=== PATIENT | male | born 1995 | race Caucasian/White ===

== ENCOUNTER 2022-03-14 14:14 | Emergency (ER) | payer BC, SELFPAY ==
[2022-03-14 14:16] VITALS: BP 142/103; PULSE 108; RESP 14; TEMP 36.4; O2SAT 98; BMI 30.4
--- NOTE | 2022-03-14 15:14 | EKG12_ITS ---
Test Reason : SOB Blood Pressure : / mmHG Vent. Rate : 094 BPM Atrial Rate : 094 BPM P-R Int : 136 ms QRS Dur : 078 ms QT Int : 340 ms P-R-T Axes : 025 001 002 degrees QTc Int : 425 ms Normal sinus rhythm with sinus arrhythmia Minimal voltage criteria for LVH, may be normal variant ( R in aVL ) Nonspecific T wave abnormality Abnormal ECG Confirmed by HANK BROOKS, TODD ([id number]), editor managing newspaper ROGER ZAMORA ([id number]) on 03/16/2022 11:51:35 AM Referred By: GISELLE Confirmed By:NAYE MCKINNEY MD
--- NOTE | 2022-03-14 15:14 | EX.ED.DYSGE1 ---
HPI History of Present Illness Chief Complaint: Shortness of Breath Detail of Chief Complaint: Palpitations Informant: patient Onset/Context/Timing Onset: Days Context: Gradual Onset Timing: Intermittent Current Severity: Mild Maximum Severity: Mild Narrative Narrative: 26-year-old male no seen past medical history. States for the last week has had palpitations and dizziness. No prior history. States it feels like his heart is fluttering. Says it makes him anxious. He denies any new stressors. He denies any vomiting or diarrhea. No melena. No fever. No drastic weight changes no drastic hair loss. No hot or cold intolerances. He is never had any cardiac history. He denies any pain. Saw his primary care physician was recently started on an antianxiety medication. Prior similar symptoms: No Recent Illness/Hospitalization: No PFSH PFSH Medical History no medical history no medical history Home Medications lorazepam 1 mg tablet (Ativan) 1 mg PO DAILY PRN anxiety 7 days #7 tabs 03/14/22 [Rx Last Taken Unknown] Allergy/AdvReac Type Severity Reaction Status Date / Time No Known Allergies Allergy Verified 03/14/22 14:16 Surgical History no surgical history Social History Smoking Status: Never smoker ROS ROS ED ROS Narrative Palpitations. Anxiety. Review of Systems ROS Unobtainable: Denies due to encephalopathy Constitutional Constitutional ED: Denies chills or fever(s) Eyes Eyes: Denies blurry vision Cardiovascular Cardiovascular: Denies chest pain Respiratory/Chest Respiratory/Chest: Denies cough Gastrointestinal Gastrointestinal: Denies abdominal pain Genitourinary Genitourinary ED: Denies dysuria or hematuria Musculoskeletal Musculoskeletal: Denies arthralgias Integumentary Denies abscess Neurologic Neurologic: Denies headache(s) Psychiatric Psychiatric: Reports anxiety Endocrine Endocrinology: Denies cold intolerance Hematologic/Lymphatic Hematologic/Lymphatic: Reports none; Denies anemia Allergic/Immunologic Allergic/Immunologic ED: Denies mouth swelling or tongue swelling EXAM Physical Exam Narrative Exam Narrative: White male no acute distress vital signs stable afebrile pulse ox 90% on room air no hypoxia. H EENT exam unremarkable. Neck nontender no thyromegaly. No lymphadenopathy. Lungs clear to auscultation bilaterally. Heart regular rhythm rate about 105 no murmur. Chest wall nontender. Abdomen soft nontender. Moving all 4 extremities. Equal symmetrical radial pulses. Calves are nontender without edema or cords. Back exam normal neurologic exam normal. Const Vital Signs: 03/14/22 14:16 03/14/22 15:12 03/14/22 15:22 Temperature 97.6 F L Temperature Source Temporal Pulse Rate 108 H Respiratory Rate 14 Respiratory Effort Normal Respiratory Depth Normal Respiratory Pattern Normal Blood Pressure 142/103 H Blood Pressure Mean 116 Pulse Ox 98 98 Oxygen Delivery Method Room Air Room Air Room Air Positive well nourished, well developed and obese; Negative for cachectic, contractures or unkempt General Appearance ED: well developed and NAD; Negative for unkempt, cachectic, contractures, cyanotic or diaphoretic Nutritional Appearance: obese; Negative for cachectic HEENT Reports moist mucous membranes; Denies dry mucous membranes Negative for trauma Mouth ED: No dry mucous membranes Mouth: No dry mucous membranes Eyes PERRL and EOMs intact bilaterally General Eye ED: Negative for pale conjunctiva or scleral icterus Neck no lymphadenopathy, supple and no JVD General: Negative for tenderness Chest Wall inspection of chest normal and palpation of chest normal Chest: Negative for other Resp normal respiratory effort and clear to auscultation bilaterally Effort and Inspection: Negative for retractions Auscultation: Negative for rales, rhonchi or wheezes Cardio S1 normal heart sound, S2 normal heart sound and no murmurs; Negative for regular rate Palpation: Negative for palpable S3 Rate: tachycardic; Negative for bradycardia GI normal to inspection, nondistended, normoactive bowel sounds, non-tender, non-distended and no masses Inspection: Negative for abdominal distention Auscultation: normoactive bowel sounds Palpation: soft; Negative for tender Back/Spine no CVA tenderness General Back: Negative for CVA tenderness Cervical Spine: Negative for cervical spine tenderness Thoracic Spine / Upper Back: Negative for thoracic spinal tenderness Lumbar Spine / Lower Back: Negative for lumbar spinal tenderness Extremity normal to inspection General Extremety ED: Negative for edema or tenderness General Extremity: Negative for edema Neuro oriented x3, CN's II-XII intact bilaterally and no sensory deficits noted Sensorium / Orientation: alert; Negative for orientation impaired, lethargic or stuporous Motor Exam: strength 5/5 throughout; Negative for general weakness Psych mental status grossly normal Appearance: Negative for unkempt Attitude: No agitated Mood & Affect: anxious; Negative for depressed Skin no rashes or lesions noted, no wounds and skin turgor normal General Skin Exam: elasticity normal Lesions: No lesion noted Rashes: No rashes noted Trauma: Negative for abrasion Wounds: Negative for wounds noted MDM MDM MDM Narrative Medical decision making narrative: 26-year-old male with palpitations and subjective symptoms but normal exam. Undergo a cardiac work-up with a thyroid test. No signs of AR or chest pain at all Micha and his age he needs a troponin. Exam is benign. This may be secondary to anxiety. Repeat exam at 4:32 PM patient doing well. 2 family members in the room who think this is anxiety I explained to him that very well may be. He will be given a short prescription of Ativan 1 mg as needed #5 no refill. Follow-up with his doctor. Also look into other anxiety reducing activities such as walking, exercise, yoga or meditation. Lab Data Attestation: I reviewed the patient's lab results. Lab results narrative: CBC normal. White count 9. H&H 15 and 43. Platelets 250. Electrolytes gap is 7 normal BUN and creatinine at 13 and 1. Glucose 119. Troponin normal at 4 and TSH normal at 0.71. Chest x-ray normal. Labs: Laboratory Results - last 24 hr 03/14/22 03/14/22 15:23 15:23 WBC 9.5 RBC 5.13 Hgb 15.4 Hct 43.9 MCV 85.6 MCH 30.0 MCHC 35.1 RDW Std Deviation 36.4 RDW Coeff of Norma 11.6 Plt Count 250 MPV 10.9 Immature Gran % (Auto) 0.500 Neut % (Auto) 75.7 H Lymph % (Auto) 17.8 L [place] % (Auto) 5.6 Eos % (Auto) 0.1 Baso % (Auto) 0.3 Absolute Neuts (auto) 7.2 Absolute Lymphs (auto) 1.69 Nucleated RBC % 0 Sodium 138 Potassium 3.9 Chloride 107 Carbon Dioxide 24.0 Anion Gap 7 BUN 13 Creatinine 1.02 Estim Creat Clear Calc 114.84 Est GFR (MDRD) Af Amer 111 Est GFR (MDRD) Non-Af 92 BUN/Creatinine Ratio 12.7 Glucose 119 H Calcium 9.6 Troponin I High Sens 4 TSH 0.71 Radiography Chest X-Ray - ED: 1 View, Read by ED Physician, Read by Radiologist, Heart, Lungs, Mediastinum and No Acute Disease Diagnostic Testing: Clinical Impression(s) from Imaging Studies Chest X-Ray 03/14/22 15:25 IMPRESSION: Normal x-ray examination of the chest. Electronically Signed: Terrell Monk MD at 15:44 EDT , Chest x-ray, portable, single view interpreted by myself and radiologist shows no acute abnormality. Normal cardiac silhouette mediastinum. Normal lung umana. Rhythm Strip Rhythm Strip: Sinus Rhythm Rate: 94 Ectopy: None EKG Initial EKG: Attestation: I personally reviewed and interpreted this EKG as follows: Interpretation: Sinus Rhythm and No Acute Injury Pattern Comments: Normal sinus rhythm. Rate of 94. No acute signs of AR or ischemia. Discharge Plan Triage Chief Complaint: Shortness of Breath ED Provider: Bill Arzate Dx/Rx/DC Orders Clinical Impression: Anxiety, Panic attack Instructions: Anxiety Disorders Tx, ED Anxiety Reaction, ED Panic Attack Prescriptions: New lorazepam [Ativan] 1 mg tablet 1 mg PO DAILY PRN (Reason: anxiety) 7 Days Qty: 7 0RF Primary Care Provider: Leonard Frost Referrals: Leonard Frost MD [Primary Care Provider] - 1-2 Weeks Activity Restrictions/Additional Instructions: Try the Ativan as needed for anxiety attacks. Do not drink or drive while using it. If you have to take 1 have someone else at home help you watch the baby. Follow-up with your doctor to ensure you are improving. The medication they put you on for anxiety will take several weeks to build up. Disposition Disposition: Home, Self Care
[2022-03-14 15:22] VITALS: O2SAT 98
--- NOTE | 2022-03-14 15:22 | NURSING ---
NO OLD EKGS
--- NOTE | 2022-03-14 15:25 | RAD_ITS ---
STUDY: X-RAY CHEST REASON FOR EXAM: Male, 26 years old. Chest pain TECHNIQUE: Single AP portable view of the chest. COMPARISON: None. FINDINGS: EKG electrodes are seen. The lungs are clear and expanded. There is no demonstrated pleural abnormality. Normal size heart. Normal mediastinum and gabo. Normal visualized pulmonary arteries. Normal visualized aortic arch and descending thoracic aorta. Normal visualized thoracic spine. Normal visualized ribs, clavicles, and shoulders. There is no demonstrated abnormality of the visualized soft tissue structures of the upper abdomen. RAD/Chest 1 View (Portable) IMPRESSION: Normal x-ray examination of the chest. Electronically Signed: Terrell Monk MD at 15:44 EDT ,
[2022-03-14 15:33] LABS: Absolute Lymphocyte Count 1.69 X10^3/uL (0.83-4.51); Absolute Neutrophil Count 7.2 X10^3/uL (2.0-7.7); Basophil# 0.03 X10^3/uL; Basophil% 0.3 % (0-1); Eosinophil# 0.01 X10^3/uL; Eosinophils% 0.1 % (0-5); Hematocrit 43.9 % (40-54); Hemoglobin 15.4 g/dL (13.0-16.5); Lymphocyte # 1.69 X10^3/ul (0.83-4.51); Lymphocyte % 17.8 % (19-41); Mean Corp Hgb Conc 35.1 g/dL (32-36); Mean Corpuscular Volume 85.6 fL (80-94); Mean Platelet Vol. 10.9 fl (6.2-12.0); Monocyte# 0.53 X10^3/uL; Monocyte% 5.6 % (0-10); NRBC Flagged by Analyzer 0 % (0-5); Neutrophil # 7.16 X10^3/uL (2.7-7.7); Neutrophil % 75.7 % (47-70); Platelet Count 250 K/mm3 (150-450); RBC Distribution Width CV 11.6 % (11.6-14.6); RBC Distribution Width SD 36.4 fl (35.1-43.9); Red Blood Count 5.13 M/mm3 (4.6-6.2); White Blood Count 9.5 K/mm3 (4.4-11.0)
[2022-03-14 16:05] LABS: Anion Gap 7 (5-15); BUN 13 mg/dL (7-18); BUN/Creat Ratio 12.7 RATIO (10-20); Calcium,Total 9.6 mg/dL (8.5-10.1); Chloride 107 mmol/L (98-107); Creatinine, Serum 1.02 mg/dL (0.70-1.30); EST Glomerular Filtration Rate 92 mL/min (>60); Est Glom Filt Rate - Afr Amer 111 mL/min (>60); Estimated Creatinine Clearance 114.84 ml/min; Glucose 119 mg/dL (74-106); Potassium 3.9 mmol/L (3.5-5.1); Sodium Level 138 mmol/L (136-145); Thyroid Stim Hormone (TSH) 0.71 uIU/mL (0.358-3.74); Troponin-I HS (w/2H Reflex) 4 pg/mL (3.0-78.0)
[2022-03-14 16:51] VITALS: BP 134/78; PULSE 78; RESP 16; TEMP 37.2; O2SAT 99
[2022-03-14 17:28] LABS: Reflex Troponin-HS? (from REC) Y
== END 2022-03-14 16:52 | disposition home or self-care (01) ==
PROVIDERS: Emergency Provider Emergency Medicine; PCP Internal Medicine; Visit Provider Emergency Medicine
DX: F41.0 Panic disorder [episodic paroxysmal anxiety] (principal); R06.02 Shortness of breath; R00.2 Palpitations; R42 Dizziness and giddiness; E66.9 Obesity, unspecified; Z79.899 Other long term (current) drug therapy
CPT/HCPCS: 71045; 80048; 84443; 84484; 85025; 93005; 99284